=== PATIENT | male | born 1995 | race Caucasian/White ===

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

== ENCOUNTER 2017-03-23 10:05 | Emergency (ER) | payer OTHER ==
[~2017-03-23] VITALS: Ht 167.6 cm; Wt 72.7 kg
[2017-03-23 10:06] VITALS: BP 135/78
[2017-03-23] MEDS ORDERED: IBUPROFEN 800 MG TAB PO ONE (11:00)
[2017-03-23] MEDS ORDERED: CYCLOBENZAPRINE 10 MG TAB PO ONE (11:00)
[2017-03-23] MEDS ORDERED: CYCL10TA PO (11:26)
[2017-03-23] MEDS ORDERED: IBUP80TA PO (11:26)
--- NOTE | 2017-03-23 11:38 | REP ---
RIGHT WRIST, FOUR VIEW: There is no evidence of an acute fracture, dislocation or intrinsic bone disease. IMPRESSION: No fracture or dislocation. Signed by Richard Borrero MD 03/24/2017 09:01 A
== END 2017-03-23 11:48 | disposition home or self-care (01) ==
LOC: M ED 10:05
DX: M62.830 Muscle spasm of back (principal); S60.211A Contusion of right wrist, initial encounter; V49.49XA Driver injured in collision with other motor vehicles in traffic accident, initial encounter; Y92.410 Unspecified street and highway as the place of occurrence of the external cause; Y93.89 Activity, other specified; Y99.8 Other external cause status; F17.210 Nicotine dependence, cigarettes, uncomplicated

== ENCOUNTER 2018-03-07 14:25 | Emergency (ER) | payer OTHER | END 2018-03-07 18:09 | disposition left against medical advice (07) | LOC: M ED 14:25 | DX: Z53.29 Procedure and treatment not carried out because of patient's decision for other reasons (principal) ==

== ENCOUNTER 2018-10-15 05:12 | Emergency (ER) | payer OTHER ==
[~2018-10-15] VITALS: Ht 167.6 cm; Wt 76.4 kg
[2018-10-15 05:12] VITALS: BP 136/72
[~2018-10-15 05:12] MED LIST: CYCL10TA PO; IBUP80TA PO
--- NOTE | 2018-10-15 07:08 | REP ---
Clinical: Trauma. Technique: AP, lateral, bilateral oblique views right hand . Findings: The osseous structures and joint spaces are intact and normal. There is no evidence for acute fracture or dislocation. Surrounding soft tissues are unremarkable. No subcutaneous emphysema or radiodense foreign body. Impression: Normal right hand series . No acute fracture or dislocation. Electronically Signed by Bill Jerome MD 10/15/2018 07:00 A
== END 2018-10-15 06:40 | disposition home or self-care (01) ==
LOC: M ED 05:12
DX: M79.641 Pain in right hand (principal); F17.210 Nicotine dependence, cigarettes, uncomplicated

== ENCOUNTER 2019-01-24 09:30 | Emergency (ER) | payer OTHER ==
[~2019-01-24] VITALS: Ht 167.6 cm; Wt 80.4 kg
[2019-01-24] MEDS ORDERED: IBUPROFEN 800 MG TAB PO ONE (10:45)
[2019-01-24] MEDS ORDERED: ONDANSETRON 4 MG ORAL DISINTEGRATING TAB (Q0162 PER 1MG) PO ONE (10:45)
[2019-01-24 11:41] VITALS: BP 130/66
== END 2019-01-24 12:11 | disposition home or self-care (01) ==
LOC: M ED 09:30
DX: S00.83XA Contusion of other part of head, initial encounter (principal); S06.0X9A Concussion with loss of consciousness of unspecified duration, initial encounter; W50.0XXA Accidental hit or strike by another person, initial encounter; Y92.9 Unspecified place or not applicable; F17.210 Nicotine dependence, cigarettes, uncomplicated
CPT/HCPCS: 99283; Q0162

== ENCOUNTER 2020-02-17 23:23 | Emergency (ER) | payer OTHER ==
[~2020-02-17] VITALS: Ht 167.6 cm; Wt 85.3 kg
[~2020-02-17 23:23] MED LIST changes: +CYCL-707 PO; -CYCL10TA PO
--- NOTE | 2020-02-18 00:41 | REPVR ---
PROCEDURE INFORMATION: Exam: US Scrotum Exam date and time: 02/18/2020 12:16 AM Age: 24 years old Clinical indication: Scrotum pain; Additional info: Left testicle pain TECHNIQUE: Imaging protocol: Real-time ultrasound of the scrotum and contents with color Doppler and image documentation. COMPARISON: No relevant prior studies available. FINDINGS: Right testicle: Heterogeneous right testicle with geographic areas of low echogenicity. Right testicle measures 4.3 x 2.5 x 2.6 cm. Normal right testicular flow. Left testicle: Normal 4.3 x 2.3 x 2.8 cm left testicle. Normal left testicular flow. Epididymides: 7-8 mm bilateral epididymi are or thin normal limits. Scrotum: Small left hydrocele. Small left-sided varicocele. IMPRESSION: Heterogeneous right testicle with geographic areas of low echogenicity. Differential includes testicular infarction, infiltrative neoplastic disease, trauma, hematoma/fracture. Electronically signed by: Jose Toro On 02/18/2020 00:41:22 AM
[2020-02-18] MEDS ORDERED: IBUP1TAB7 PO (02:55)
--- NOTE | 2020-02-18 02:58 | HPEPDOC ---
[facility] Medical History & Physical Date of Admission Feb 18, 2020 Date of Service: Feb 18, 2020 History and Physical CHIEF COMPLAINT: Testicular pain HISTORY OF PRESENT ILLNESS: 24-year-old male presenting to the ED for testicular pain. Tells me that over the past 2-3 years he gets left-sided testicular pain that is very severe but he is able to twist his testicles in a particular direction which is typically resolves his pain tells me that these episodes happen every 4-6 months. Tells me that he had an episode 2 days ago that was very painful and he had discussed this was a father who recommended he come to the hospital to be evaluated. Currently he is not expressing any testicular pain. Denies any penile discharge. Denies any trauma to testicles. Tells me that his brother has had a history of testicular torsion that required a surgical intervention but he is unsure what surgical intervention was performed. Tells me that he is not aware of any family members having testicular cancer. PAST MEDICAL HISTORY: Denies any medical problems PAST SURGICAL HISTORY: Denies any prior surgeries SOCIAL HISTORY: Denies alcohol use Smokes half a pack per day Denies illicit drug use FAMILY HISTORY: No family history of testicular cancer Brother has history of testicular torsion ALLERGIES: Please see below. REVIEW OF SYSTEMS: 10 point review of systems completed and is negative other than stated in HPI HOME MEDICATIONS: Please see below. PHYSICAL EXAMINATION: Constitutional: Awake and alert, in no apparent distress ENT: Sclera are clear. Mucosa is moist. Respiratory: Lungs CTA bilaterally. No respiratory distress. No use of accessory muscles. Cardiovascular: RRR S1 and S2 are normal, no murmur Gastrointestinal: Abdomen is soft, non distended, non tender, BS present. Musculoskeletal: No edema. Genitourinary: Examination penis and testicles was unremarkable. 2 testicles present in scrotum that appear of normal size. Patient did not have tenderness on palpation of left or right testicles. No significant variceal appreciated. Neurologic: No focal neurological deficit. Mental Status: A&O x3, normal affect Skin: Warm, dry LABORATORY DATA: See below. IMAGING: See chart MICROBIOLOGY: Please see below. ASSESSMENT/PLAN 24-year-old male with no past medical history complaining of years left testicular pain admitted for observation for evaluation by urology in the morning. # Left testicular pain: Currently not in any pain. Admit to observation for evaluation by urology in the morning. Follow-up ultrasound testicles. # Smoker: Counseled on quitting smoking. Does not want nicotine patch. # DVT prophylaxis: Lovenox A [facility] Hospitalist Vital Signs Vital Signs Date Time Temp Pulse Resp B/P (MAP) Pulse Ox O2 Delivery O2 Flow Rate FiO2 02/17/20 23:23 97.3 86 18 122/76 (91) 100 Room Air Laboratory Data Labs 24H Laboratory Tests 2 02/18/20 01:06: Urine Color YELLOW, Urine Appearance CLEAR, Urine pH 6.0, Urine Specific [place] 1.013, Urine Protein NEGATIVE, Urine Glucose (UA) NEGATIVE, Urine Ketones NEGATIVE, Urine Blood NEGATIVE, Urine Nitrite NEGATIVE, Urine Bilirubin NEGATIVE, Urine Urobilinogen 0.2, Urine Leukocyte Esterase NEGATIVE, Urine WBC (Auto) 0, Urine RBC (Auto) 1, Urine Hyaline Casts (Auto) 0, Urine Bacteria ( Auto) NEGATIVE, Urine Squamous Epithelial Cells 0, Urine Mucus (Auto) SMALL, Urine Sperm (Auto) Home Medications Scheduled PRN Ibuprofen (Ibuprofen) 800 Mg Tab, 800 MG PO Q6H PRN for PAIN Allergies Coded Allergies: No Known Allergies (Unverified , 10/30/16) A-FIB/CHADSVASC A-FIB History Current/History of A-Fib/PAF?: No CHER DIXON MD Feb 18, 2020 02:58
[2020-02-18 03:11] LABS: HEMOGLOBIN 15.4 g/dl (13.5-17.5); MEAN CORPUSCULAR HEMOGLOBIN 29.5 pg (27.0-33.0); MEAN CORPUSCULAR HGB CONC 32.8 g/dl (32.0-36.5); PLATELET COUNT, AUTOMATED 221 10^3/uL (150-450); RED BLOOD COUNT 5.22 10^6/uL (4.30-6.10); WHITE BLOOD COUNT 6.4 10^3/uL (4.0-10.0)
[2020-02-18 03:39] LABS: BLOOD UREA NITROGEN 11 MG/DL (7-18); CALCIUM LEVEL 8.6 MG/DL (8.5-10.1); CARBON DIOXIDE LEVEL 27 MEQ/L (21-32); CHLORIDE LEVEL 106 MEQ/L (98-107); CREATININE FOR GFR 0.91 MG/DL (0.70-1.30); GLOMERULAR FILTRATION RATE > 60.0 (>60); GLUCOSE, FASTING 95 MG/DL (70-100); POTASSIUM SERUM 3.9 MEQ/L (3.5-5.1); SODIUM LEVEL 140 MEQ/L (136-145)
[2020-02-18] MEDS ORDERED: ceFAZolin SOD 2 GM in IV 1 EA IV ONE (06:00)
[2020-02-18] MEDS ORDERED: LIDOCAINE 2% 100MG/5ML SDV (FOR ANES.) As Ordered ONE (07:51)
[2020-02-18] MEDS ORDERED: propofoL 200 MG/20 ML VIAL As Ordered ONE (07:51)
[2020-02-18] MEDS ORDERED: ROCURONIUM BROMIDE 50 MG/5 ML VIAL As Ordered ONE (07:52)
--- NOTE | 2020-02-18 08:40 | SMCUROLCON ---
Urology Consultation General Date of Consultation 02/18/20 Reason For Consultation This patient is seen for Left Testicular Pain. History of Present Illness The patient is a 24-year-old male with a past medical history for intermittent left testicular pain. Marck tells me that he has has had intermittent left testicular pain for many years. He will have 2 or 3 episodes a year - every other year. When this happens he states that if he readjusts his testicles the discomfort goes away. He states that it has been a year or so since his last episode of discomfort. His present episode began a few days ago with left testicular pain but this time it did not resolve with manipulating and readjusting himself. He therefore presented to the emergency room for an evaluation. A scrotal ultrasound as part of the workup showed that he had good blood flow to both testicles. The left testicle - which is his side with the pain - had no abnormalities noted. The right testicle (the normal side) had a few areas of hypoechogenicity which could be consistent with necrosis, old trauma or perhaps tumor as read by the radiologist. A urology consult was called because of his left testicular pain and ultrasound findings. Interestingly, the patient states that he has a brother who had a torsion and needed surgery. Family History Family History Brother has had a bilateral orchiopexy for torsion Social History Social History Patient is with one child. He is in the . He does not use drugs denies any allergies Drugs: denies Medications Current Medications Current Medications Medications (Trade) Dose Ordered Sig/Naveen Route PRN Reason Start Time Stop Time Status Last Admin Dose Admin Enoxaparin Sodium (Lovenox) 40 mg DAILY SC 02/18/20 09:00 Home Med (Med Rec Complete!) ASDIRECTED XX 02/18/20 03:00 02/18/20 02:59 DC Allergies Allergies: Coded Allergies: No Known Allergies (Unverified , 10/30/16) Review of Systems General: Reports: Normal Appetite; Denies: Fatigue, Malaise Constitutional: Denies: Fever, Chills, Sweats, Weakness, Malaise Eyes: Denies: Pain, Vision change ENT: Denies: Head Aches, Sore Throat, Epistaxis Skin: Denies: Rash, Lesions, Breakdown, Nail Changes Pulmonary: Denies: Dyspnea, Cough Cardiovascular: Denies Chest Pain, Denies Palpitations Gastrointestinal: Denies: Nausea, Vomiting, Abdominal Pain Genitourinary: Denies: Dysuria, Frequency, Incontinence, Hematuria Hematologic: Denies: Bruising, Bleeding Excessively Endocrine: Denies: Polydipsia, Polyphagia, Polyuria Musculoskeletal: Denies: Neck Pain, Back Pain Neurological: Denies: Weakness, Numbness, Incoordination, Change in Speech Psych: Reports: Mood Normal; Denies: Anxiety, Depression Physical Examination General Exam: Alert, No Acute Distress EYE EXAM: PERRLA, Conjunctiva & lids normal, EOMI; No: Sclera icteric ENT EXAM: Atraumatic, Mucous membr. moist/pink, Pharynx Normal Neck Exam: Supple; No: JVD, thyromegaly Chest Exam: Clear to auscultation, Normal air movement Heart Exam: Rate Normal, Regular Rhythm, Normal S1, Normal S2; No: Murmurs, Rubs Abdomen Exam: Normal Bowel Sounds, Soft; No: Tenderness, Hepatospenomegaly Male Exam: Normal Genital Exam Male Exam Penis is circumcised. Scrotum and testicles initially appeared normal. On palpation, both testicles are normal without torsion, lesions or tenderness or masses. Epididymides AR posterior on both testicles and nontender to palpation. The perineum is normal. Extremity Exam: Normal Pulses; No: Clubbing, Cyanosis, Edema Neuro Exam: Normal Gait, Normal Speech, Cranial Nerves 3-12 NL, Reflexes 2+ Psych Exam: Mental status NL, Mood NL, Oriented x 3 Vital Signs/I&O Vital Signs Date Time Temp Pulse Resp B/P (MAP) Pulse Ox O2 Delivery O2 Flow Rate FiO2 02/18/20 06:45 66 20 138/62 (87) 97 Room Air 02/17/20 23:23 97.3 Laboratory Data 24H Labs Laboratory Tests 2 02/18/20 01:06: Urine Color YELLOW, Urine Appearance CLEAR, Urine pH 6.0, Urine Specific [place] 1.013, Urine Protein NEGATIVE, Urine Glucose (UA) NEGATIVE, Urine Ketones NEGATIVE, Urine Blood NEGATIVE, Urine Nitrite NEGATIVE, Urine Bilirubin NEGATIVE, Urine Urobilinogen 0.2, Urine Leukocyte Esterase NEGATIVE, Urine WBC (Auto) 0, Urine RBC (Auto) 1, Urine Hyaline Casts (Auto) 0, Urine Bacteria (Auto) NEGATIVE, Urine Squamous Epithelial Cells 0, Urine Mucus (Auto) SMALL, Urine Sperm (Auto) 02/18/20 03:02: Nucleated Red Blood Cells % (auto) 0.0, Anion Gap 7L, Glomerular Filtration Rate > 60.0, Calcium Level 8.6 02/18/20 06:43: Coronavirus (COVID-19)(PCR) NEGATIVE CBC/BMP Laboratory Tests 02/18/20 03:02 Assessment 1. Left testicular discomfort with no evidence of torsion 2. Right testicular areas of hypoechogenicity on ultrasound. There is good blood flow to both testicles on review of the ultrasound. The right testicle-which is the unaffected side-there are some areas of hypoechogenicity on ultrasound. The patient denies any trauma previous episodes of any pain on that side, infection or any other incidents. Because of this, surgery is not necessary at this time. I would recommend repeating the scrotal ultrasound after getting blood work for AFP and beta hCG. The patient may be followed up in the clinic and may need periodic scrotal ultrasounds pending the results of the blood work. Time Spent on Consult: Time Spent / Consult (Minutes): 85 LUCIO SORIANO MD Feb 18, 2020 08:40
[2020-02-18 08:43] VITALS: BP 141/63
[2020-02-18] MEDS ORDERED: ENOXAPARIN 40MG/0.4ML SYRINGE (J1650 PER 10MG) SC SCH (09:00)
--- NOTE | 2020-02-19 07:17 | IPNPDOC ---
Date Seen The patient was seen on 02/19/20. Progress Note THIS IS A NOTE FOR 02/18/20 SUBJECTIVE: I was made aware that patient was seen by urology in ER and urology wished for this man to be discharged from the ER to home. They will follow up as o/p. I deleted the discharge order but never saw this patient myself. VS, I&O, 24H, Fishbone Vital Signs/I&O Vital Signs Date Time Temp Pulse Resp B/P (MAP) Pulse Ox O2 Delivery O2 Flow Rate FiO2 02/18/20 08:43 97.5 70 16 141/63 (89) 99 Room Air Katelyn Abarca MD Feb 19, 2020 07:17
== END 2020-02-18 08:45 | disposition home or self-care (01) ==
LOC: M ED 23:23 → INTOOBSV 23:24 → UNDOADMOB 23:24 → M ED INP 23:24 → CMPBEDREQ 02-18 04:36
DX: N50.812 Left testicular pain (principal); R93.819 Abnormal radiologic findings on diagnostic imaging of unspecified testicle
CPT/HCPCS: 36415; 76870; 80048; 81001; 82105; 84702; 85027; 99284; U0002

== ENCOUNTER 2020-03-15 07:20 | Day surgery (SDC) | payer OTHER ==
[~2020-03-15] VITALS: Ht 167.6 cm; Wt 84.6 kg
[~2020-03-15 07:20] MED LIST changes: +IBUP1TAB7 PO; +LIDOCAINE 1% MDV 20ML VIAL SQ PRN; +LR 1,000 ML IV ONE; +ceFAZolin SOD 2 GM in IV 1 EA IV ONE
[2020-03-15] MEDS ORDERED: BUPIVACAINE HCL 0.25% 30ML VIAL As Ordered ONE (09:05)
[2020-03-15] MEDS ORDERED: BACITRACIN OINTMENT 30GM TUBE As Ordered ONE (09:05)
[2020-03-15] MEDS ORDERED: LIDOCAINE 2% 100MG/5ML SDV (FOR ANES.) As Ordered ONE (09:08)
[2020-03-15] MEDS ORDERED: ONDANSETRON 4MG/2ML VIAL As Ordered ONE (09:08)
[2020-03-15] MEDS ORDERED: propofoL 200 MG/20 ML VIAL As Ordered ONE (09:08)
[2020-03-15] MEDS ORDERED: fentaNYL 100 MCG/2 ML INJECTION (J3010) As Ordered ONE (09:09)
[2020-03-15] MEDS ORDERED: MIDAZOLAM INJ 2MG/2ML VIAL (J2250 PER 1MG) As Ordered ONE ×2 (09:09→09:14)
[2020-03-15] MEDS ORDERED: KETAMINE HCL 200 MG/20 ML VIAL As Ordered ONE (09:50)
[2020-03-15] MEDS ORDERED: ACETAMINOPHEN 1000MG 100ML IV BTL (OFIRMEV) (J0131 PER 10MG) As Ordered ONE (10:19)
[2020-03-15] MEDS ORDERED: OXYC1TAB23 PO (10:46)
[2020-03-15] MEDS ORDERED: METOCLOPRAMIDE INJ 10MG/2ML VIAL (J2765 PER 1) IV PRN (11:45)
[2020-03-15] MEDS ORDERED: ONDANSETRON 4MG/2ML VIAL IV PRN (11:45)
[2020-03-15] MEDS ORDERED: fentaNYL 100 MCG/2 ML INJECTION (J3010) IV PRN (11:45)
[2020-03-15] MEDS ORDERED: LR 1,000 ML IV SCH (11:45)
[2020-03-15] MEDS ORDERED: PERCOCET 5MG/325MG TAB PO PRN ×2 (11:45)
--- NOTE | 2020-03-15 11:59 | RO ---
OPERATIVE NOTE DATE OF OPERATION: 03/15/2020 PREOPERATIVE DIAGNOSIS: Left testicular torsion. POSTOPERATIVE DIAGNOSIS: Left testicular torsion. PROCEDURE: Left orchiopexy. SURGEON: Ancelmo Alicea MD [facility] OPERATOR: None. ANESTHESIA: General. 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 He is brought to the operating room today for above procedure. DESCRIPTION OF PROCEDURE: The patient was brought to the operating room and spinal anesthesia was administered. Prophylactic antibiotics infused. He was placed in the supine position, prepped and draped in usual sterile fashion. At this point an approximately 3-4 cm transverse incision was made over the left hemiscrotum. The testicle was delivered outside the left hemiscrotum. The tunica vaginalis was opened and testicle was examined. The testicle did not have any abnormalities. At this point two separate 3-0 Vicryl sutures were placed on both the left and right side of the testicle and suture was carried through dartos muscle on either side. Once that was done I checked for hemostasis and any areas of bleeding were controlled with electrocautery. The left testicle was then delivered back inside the left hemiscrotum in its normal anatomic position. Once that was done both of the 3-0 Vicryl sutures were tied down securing the left testicle inside the left hemiscrotum. The dartos muscle was then closed with running 2-0 Vicryl suture. Skin was reapproximated with interrupted 2-0 chromic sutures. Dressings were applied and this marked the conclusion of the procedure. The patient was awakened from anesthesia and transported to the recovery room in stable condition. ESTIMATED BLOOD LOSS: 5 mL. COMPLICATIONS: None. SPECIMENS: None. PLAN: The patient will follow up in urology clinic in a few weeks for postoperative visit. Of note, on the patient's preoperative scrotal ultrasound he did have some abnormalities seen in his right testicle. He will be scheduled for follow up scrotal ultrasound in 3 months for that.
[2020-03-15 14:50] VITALS: BP 142/94
== END 2020-03-15 15:00 | disposition home or self-care (01) ==
LOC: M SDC 07:20
PROVIDERS: ATTEND Urology
DX: N44.00 Torsion of testis, unspecified (principal); F17.218 Nicotine dependence, cigarettes, with other nicotine-induced disorders
CPT/HCPCS: 54600; J0131; J0690; J2250; J2405; J3010

== ENCOUNTER → 2020-06-18 | Outpatient (CLI) | payer OTHER ==
[~2020-06-18] MED LIST changes: -LIDOCAINE 1% MDV 20ML VIAL SQ PRN; -LR 1,000 ML IV ONE; +OXYC1TAB23 PO; -ceFAZolin SOD 2 GM in IV 1 EA IV ONE
--- NOTE | 2020-06-18 10:49 | REP ---
INDICATION: TESTICULAR TORSION. COMPARISON: 02/18/2020. TECHNIQUE: Real-time sonographic evaluation of scrotum and contents performed. FINDINGS: Right testicle measures 4.2 x 2.2 x 3.0 cm and left testicle 4.7 x 2.6 x 3.1 cm. There is again heterogeneous echotexture in the right testicle. Peripheral somewhat wedge-shaped hypoechoic areas are again seen unchanged. No new testicular abnormality is seen. There is no evidence of testicular torsion bilaterally, blood flow is seen in each testicle with duplex Doppler evaluation. Epididymis appears unremarkable bilaterally. There is no hydrocele. IMPRESSION: Stable appearance of right testicle, with ill-defined somewhat wedge-shaped hypoechoic areas again seen in the right testicle. This may represent a prior vascular insult. <Electronically signed by Richard Borrero > 06/18/20 [id number]
== END ==
LOC: M RAD 09:09
PROVIDERS: ATTEND Nurse Practitioner Women's Health
DX: N44.00 Torsion of testis, unspecified (principal)

== ENCOUNTER 2020-12-18 15:52 | Emergency (ER) | payer OTHER ==
[~2020-12-18] VITALS: Ht 167.6 cm; Wt 81.4 kg
[2020-12-18 15:53] VITALS: BP 148/76
--- NOTE | 2020-12-18 17:08 | REP ---
INDICATION: HERNIA. COMPARISON: None. TECHNIQUE: Right inguinal soft tissue sonography. Left inguinal soft tissue ultrasound for comparison. FINDINGS: There is no evidence of inguinal hernia on either side. Scanning in the area the patient's palpable lump in the right groin demonstrates 2 observable lymph nodes. These have preserved hyperechoic fatty hilar architecture and appear normal. They measure 2.2 x 0.8 x 1.8 cm and 2.3 x 0.8 x 1.8 cm respectively. A similar lymph node is noted in the left groin measuring 1.8 x 0.7 x 0.9 cm IMPRESSION: Two lymph nodes noted at the site of the palpable right groin lump. No hernia is seen. No abnormal fluid collection. <Electronically signed by Deepak Ojeda > 12/18/20 [id number]
[2020-12-18 17:23] LABS: BASO % 0.4 % (0.0-1.0); EOS # 0.1 10^3/uL (0.0-0.5); EOS % 1.7 % (0.0-3.0); HEMATOCRIT 46.3 % (42.0-52.0); HEMOGLOBIN 15.9 g/dl (13.5-17.5); LYMPH # 2.6 10^3/uL (1.5-5.0); LYMPH % 33.3 % (24.0-44.0); MEAN CORPUSCULAR HEMOGLOBIN 30.8 pg (27.0-33.0); MEAN CORPUSCULAR HGB CONC 34.3 g/dl (32.0-36.5); MEAN CORPUSCULAR VOLUME 89.6 fl (80.0-96.0); MONO # 0.5 10^3/uL (0.0-0.8); NEUTROPHILS # 4.4 10^3/uL (1.5-8.5); NEUTROPHILS % 57.2 % (36.0-66.0); PLATELET COUNT, AUTOMATED 229 10^3/uL (150-450); RED BLOOD COUNT 5.17 10^6/uL (4.30-6.10); WHITE BLOOD COUNT 7.7 10^3/uL (4.0-10.0)
[2020-12-18 17:46] LABS: ALBUMIN 4.4 GM/DL (3.2-5.2); ALT/SGPT 35 U/L (12-78); BILIRUBIN,DIRECT < 0.1 MG/DL (0.0-0.2); BILIRUBIN,TOTAL 0.5 MG/DL (0.2-1.0); LIPASE 174 U/L (73-393); TOTAL PROTEIN 7.9 GM/DL (6.4-8.2)
[2020-12-18 17:48] LABS: BLOOD UREA NITROGEN 13 MG/DL (7-18); CALCIUM LEVEL 8.9 MG/DL (8.5-10.1); CARBON DIOXIDE LEVEL 29 MEQ/L (21-32); CHLORIDE LEVEL 105 MEQ/L (98-107); GLOMERULAR FILTRATION RATE > 60.0 (>60); GLUCOSE, FASTING 101 MG/DL (70-100); POTASSIUM SERUM 3.9 MEQ/L (3.5-5.1); SODIUM LEVEL 138 MEQ/L (136-145)
== END 2020-12-18 18:10 | disposition home or self-care (01) ==
LOC: M ED 15:52
DX: R59.0 Localized enlarged lymph nodes (principal); R10.30 Lower abdominal pain, unspecified; F17.200 Nicotine dependence, unspecified, uncomplicated